=== PATIENT | female | born 1955 | race Caucasian/White ===

== ENCOUNTER → 2017-01-13 | Outpatient (CLI) | payer BC ==
[~2017-01-13] MED LIST: CLARITIN-D 12 H1 TA1 PO; LEVOXYL88 MCG PO; NORCO 5-325 TA1 EACH PO; PRILOSEC 20 MG20 MG PO; TOBREX5 ML OPHTHALMIC
== END ==
LOC: RAD 03:56
DX: Z12.31 Encounter for screening mammogram for malignant neoplasm of breast (principal)

== ENCOUNTER → 2019-03-20 | Outpatient (CLI) | payer BC, OTHER | LOC: RAD 11:26 | DX: Z12.31 Encounter for screening mammogram for malignant neoplasm of breast (principal) ==

== ENCOUNTER → 2020-04-15 | Outpatient (CLI) | payer BC, OTHER | LOC: BC 10:09 | PROVIDERS: ATTEND Obstetrics & Gynecology | DX: Z12.31 Encounter for screening mammogram for malignant neoplasm of breast (principal) ==

== ENCOUNTER → 2021-04-16 | Outpatient (CLI) | payer BC, OTHER | LOC: BC 09:43 | PROVIDERS: ATTEND Obstetrics & Gynecology | DX: Z12.31 Encounter for screening mammogram for malignant neoplasm of breast (principal) ==